=== PATIENT | female | born 1945 | race Caucasian/White ===

== ENCOUNTER 2019-12-31 18:35 | Observation (INO) ==
[2019-12-31 21:38] LABS: ABS Eosinophils 0.2 10^3/ul (0-0.6); ABS Lymphocytes 1.5 10^3/ul (1.0-4.8); ABS Monocytes 0.4 10^3/ul (0-0.8); Eosinophil % 3.2 %; Hematocrit 33 % (35-47); Hemoglobin 11.4 g/dL (12.0-16.0); Lymphocyte % 28.8 %; Mean Corpuscular HGB Conc 35 g/dL (31-36); Mean Corpuscular Hemoglobin 32 pg (27-31); Mean Corpuscular Volume 92 fL (80-97); Mean Platelet Volume 7.9 fL (7.4-10.4); Platelet Count 191 10^3/uL (150-450); Red Blood Count 3.55 10^6 /uL (3.70-4.87); Red Cell Distribution Width 13 % (10-15); White Blood Count 5.2 10^3/uL (3.5-10.8)
[2019-12-31 21:55] LABS: Albumin 3.9 g/dL (3.2-5.2); Albumin/Globulin Ratio 1.4 (1-3); BUN/Creatinine Ratio 34.3 (8-20); C Reactive Protein 2.88 mg/L (<8.01); Calcium 9.5 mg/dL (8.6-10.3); EGFR African American 98.7 (>60); EGFR Non-African American 81.6 (>60); Globulin 2.7 g/dL (2-4); Potassium 4.1 mmol/L (3.5-5.0); Total Bilirubin 1.2 mg/dL (0.2-1.0); Total Protein 6.6 g/dL (6.4-8.9)
[2019-12-31 22:41] LABS: Erythrocyte Sed Rate 15 mm/Hr (0-29)
[2019-12-31 23:12] LABS: Urine Appearance Clear; Urine Bilirubin Negative (Negative); Urine Blood Negative (Negative); Urine Color Yellow; Urine Glucose Negative (Negative); Urine Ketones Trace (Negative); Urine Nitrite Negative (Negative); Urine Protein Negative (Negative); Urine Urobilinogen Negative (Negative)
[2020-01-01] MEDS ORDERED: Ondansetron 4 mg VIAL 2 MG/ML 2 ml VIAL IV PRN (09:29)
[2020-01-01] MEDS: Carbidopa/Levodop CR 50/200(*) TAB.CR PO SCH ×3 (13:14→20:25)
[2020-01-02] MEDS: Carbidopa/Levodop CR 50/200(*) TAB.CR PO SCH (08:31)
[2020-01-02] MEDS ORDERED: CMCS: Meloxicam 7.5 mg TAB (NF) PO SCH (09:00)
[2020-01-02 11:18] VITALS: BP 117/34
== END 2020-01-02 11:45 ==
LOC: ED 18:35 → MEDTELE 18:35
PROVIDERS: ADMIT Hospitalist; ATTEND Internal Medicine

== ENCOUNTER 2020-01-02 11:01 | Inpatient (IN) ==
[2020-01-02] MEDS: Carbidopa/Levodop CR 50/200(*) TAB.CR PO SCH ×2 (17:26→20:45)
[2020-01-02 19:28] LABS: Urine Appearance Clear; Urine Bilirubin Negative (Negative); Urine Blood Negative (Negative); Urine Color Yellow; Urine Glucose Negative (Negative); Urine Ketones Trace (Negative); Urine Nitrite Negative (Negative); Urine Protein Negative (Negative); Urine Urobilinogen Negative (Negative)
[2020-01-02 19:30] LABS: Urine Bacteria Absent (Absent); Urine Red Blood Cell Trace(0-2/hpf) (Absent); Urine Squamous Epithelial Cell Present (Absent); Urine Transitional Epithelial Present (Absent); Urine White Blood Cell Trace(0-5/hpf) (Absent)
[2020-01-02] MEDS: Heparin 5000 UNITS/ML VIAL(*) 1 ml vial SUBCUT SCH (20:47)
[2020-01-03 05:47] LABS: ABS Eosinophils 0.2 10^3/ul (0-0.6); ABS Lymphocytes 1.6 10^3/ul (1.0-4.8); ABS Monocytes 0.4 10^3/ul (0-0.8); Eosinophil % 4.2 %; Hematocrit 33 % (35-47); Hemoglobin 11.5 g/dL (12.0-16.0); Lymphocyte % 36.5 %; Mean Corpuscular HGB Conc 35 g/dL (31-36); Mean Corpuscular Hemoglobin 33 pg (27-31); Mean Corpuscular Volume 92 fL (80-97); Mean Platelet Volume 7.4 fL (7.4-10.4); Nucleated Red Blood Cells % 0.2; Platelet Count 200 10^3/uL (150-450); Red Blood Count 3.54 10^6 /uL (3.70-4.87); Red Cell Distribution Width 13 % (10-15); White Blood Count 4.4 10^3/uL (3.5-10.8)
[2020-01-03 07:20] LABS: Albumin 3.5 g/dL (3.2-5.2); Albumin/Globulin Ratio 1.4 (1-3); Calcium 8.4 mg/dL (8.6-10.3); EGFR African American 127.7 (>60); EGFR Non-African American 105.5 (>60); Globulin 2.5 g/dL (2-4); Potassium 3.7 mmol/L (3.5-5.0); Total Bilirubin 0.8 mg/dL (0.2-1.0)
[2020-01-03] MEDS: Heparin 5000 UNITS/ML VIAL(*) 1 ml vial SUBCUT SCH ×2 (08:23→21:11)
[2020-01-03] MEDS: CMCS:Meloxicam 7.5 mg TAB (NF) PO SCH (08:23)
[2020-01-03] MEDS: Carbidopa/Levodop CR 50/200(*) TAB.CR PO SCH ×4 (08:23→21:00)
[2020-01-04] MEDS: Carbidopa/Levodop CR 50/200(*) TAB.CR PO SCH ×4 (08:21→20:28)
[2020-01-04] MEDS: Heparin 5000 UNITS/ML VIAL(*) 1 ml vial SUBCUT SCH ×2 (08:22→20:28)
[2020-01-04] MEDS: CMCS:Meloxicam 7.5 mg TAB (NF) PO SCH (08:22)
[2020-01-05] MEDS ORDERED: Lorazepam PYXIS KEY PRN ×2 (00:59→19:08)
[2020-01-05] MEDS ORDERED: LORazepam 2 mg VIAL 1 ml IM PRN ×2 (01:00→19:08)
[2020-01-05] MEDS ORDERED: LORazepam 2 mg VIAL 1 ml IM ONE (01:00)
[2020-01-05] MEDS: Carbidopa/Levodop CR 50/200(*) TAB.CR PO SCH ×4 (08:36→21:03)
[2020-01-05] MEDS: Heparin 5000 UNITS/ML VIAL(*) 1 ml vial SUBCUT SCH ×2 (08:37→20:06)
[2020-01-05] MEDS: CMCS:Meloxicam 7.5 mg TAB (NF) PO SCH (08:37)
[2020-01-05] MEDS: Magnesium Hydroxide LIQ 30 ML UDC PO PRN (20:03)
[2020-01-05] MEDS: LORazepam 0.5 mg TAB (*) PO PRN (21:04)
[2020-01-06] MEDS: Carbidopa/Levodop CR 50/200(*) TAB.CR PO SCH ×4 (08:31→22:00)
[2020-01-06] MEDS: Heparin 5000 UNITS/ML VIAL(*) 1 ml vial SUBCUT SCH ×2 (08:32→22:03)
[2020-01-06] MEDS: CMCS:Meloxicam 7.5 mg TAB (NF) PO SCH (08:32)
[2020-01-07] MEDS: Carbidopa/Levodop CR 50/200(*) TAB.CR PO SCH ×4 (09:27→20:23)
[2020-01-07] MEDS: Heparin 5000 UNITS/ML VIAL(*) 1 ml vial SUBCUT SCH ×2 (09:28→20:47)
[2020-01-07] MEDS: CMCS:Meloxicam 7.5 mg TAB (NF) PO SCH (09:28)
[2020-01-07] MEDS: Magnesium Hydroxide LIQ 30 ML UDC PO PRN (13:48)
[2020-01-07] MEDS ORDERED: Psyllium PAK PO ONE (15:46)
[2020-01-07] MEDS: Senna TAB 8.6 mg TAB PO PRN (20:25)
[2020-01-07] MEDS: LORazepam 0.5 mg TAB (*) PO PRN (22:16)
[2020-01-08] MEDS: CMCS:Meloxicam 7.5 mg TAB (NF) PO SCH (08:18)
[2020-01-08] MEDS: Carbidopa/Levodop CR 50/200(*) TAB.CR PO SCH ×4 (08:18→20:13)
[2020-01-08] MEDS: Psyllium PAK PO SCH (08:18)
[2020-01-08] MEDS: Heparin 5000 UNITS/ML VIAL(*) 1 ml vial SUBCUT SCH ×2 (08:27→20:13)
[2020-01-08] MEDS: Senna TAB 8.6 mg TAB PO PRN (20:12)
[2020-01-08] MEDS: LORazepam 0.5 mg TAB (*) PO PRN (21:04)
[2020-01-09] MEDS: CMCS:Meloxicam 7.5 mg TAB (NF) PO SCH (08:54)
[2020-01-09] MEDS: Carbidopa/Levodop CR 50/200(*) TAB.CR PO SCH ×4 (08:54→21:08)
[2020-01-09] MEDS: Heparin 5000 UNITS/ML VIAL(*) 1 ml vial SUBCUT SCH ×2 (08:55→21:09)
[2020-01-09] MEDS: Psyllium PAK PO SCH (08:56)
[2020-01-09] MEDS: LORazepam 0.5 mg TAB (*) PO PRN (21:10)
[2020-01-10 07:08] LABS: ABS Eosinophils 0.2 10^3/ul (0-0.6); ABS Lymphocytes 1.9 10^3/ul (1.0-4.8); ABS Monocytes 0.4 10^3/ul (0-0.8); Eosinophil % 4.3 %; Hematocrit 36 % (35-47); Hemoglobin 12.6 g/dL (12.0-16.0); Lymphocyte % 41.1 %; Mean Corpuscular HGB Conc 35 g/dL (31-36); Mean Corpuscular Hemoglobin 33 pg (27-31); Mean Corpuscular Volume 94 fL (80-97); Mean Platelet Volume 7.3 fL (7.4-10.4); Platelet Count 200 10^3/uL (150-450); Red Blood Count 3.86 10^6 /uL (3.70-4.87); Red Cell Distribution Width 14 % (10-15); White Blood Count 4.6 10^3/uL (3.5-10.8)
[2020-01-10 07:36] LABS: ALT 9 U/L (7-52); Albumin 3.8 g/dL (3.2-5.2); Albumin/Globulin Ratio 1.5 (1-3); Alkaline Phosphatase 53 U/L (34-104); BUN/Creatinine Ratio 23.7 (8-20); Blood Urea Nitrogen 14 mg/dL (6-24); CO2 Carbon Dioxide 26 mmol/L (22-32); Calcium 8.8 mg/dL (8.6-10.3); Chloride 108 mmol/L (101-111); EGFR African American 120.2 (>60); EGFR Non-African American 99.4 (>60); Globulin 2.6 g/dL (2-4); Glucose 87 mg/dL (70-100); Sodium 139 mmol/L (135-145); Total Protein 6.4 g/dL (6.4-8.9)
[2020-01-10 08:13] LABS: Anion Gap 5 mmol/L (2-11)
[2020-01-10] MEDS: Carbidopa/Levodop CR 50/200(*) TAB.CR PO SCH ×4 (08:17→20:37)
[2020-01-10] MEDS: CMCS:Meloxicam 7.5 mg TAB (NF) PO SCH (08:17)
[2020-01-10] MEDS: Heparin 5000 UNITS/ML VIAL(*) 1 ml vial SUBCUT SCH ×2 (08:17→20:35)
[2020-01-10] MEDS: Psyllium PAK PO SCH (08:19)
[2020-01-10 13:23] LABS: Potassium Redraw 4.3 mmol/L (3.5-5.0)
[2020-01-10 19:10] LABS: Urine Appearance Clear; Urine Bilirubin Negative (Negative); Urine Blood Negative (Negative); Urine Color Yellow; Urine Glucose Negative (Negative); Urine Ketones Trace (Negative); Urine Nitrite Negative (Negative); Urine Protein Negative (Negative); Urine Specific Gravity 1.014 (1.010-1.030); Urine Urobilinogen Negative (Negative)
[2020-01-10] MEDS: LORazepam 0.5 mg TAB (*) PO PRN (20:39)
[2020-01-11] MEDS: CMCS:Meloxicam 7.5 mg TAB (NF) PO SCH (09:17)
[2020-01-11] MEDS: Psyllium PAK PO SCH (09:17)
[2020-01-11] MEDS: Heparin 5000 UNITS/ML VIAL(*) 1 ml vial SUBCUT SCH ×2 (09:17→21:06)
[2020-01-11] MEDS: Carbidopa/Levodop CR 50/200(*) TAB.CR PO SCH ×4 (09:18→21:04)
[2020-01-11] MEDS: Senna TAB 8.6 mg TAB PO PRN (21:04)
[2020-01-11] MEDS: LORazepam 0.5 mg TAB (*) PO PRN (23:47)
[2020-01-12 06:09] VITALS: BP 107/50
[2020-01-12] MEDS: Heparin 5000 UNITS/ML VIAL(*) 1 ml vial SUBCUT SCH (11:24)
[2020-01-12] MEDS: CMCS:Meloxicam 7.5 mg TAB (NF) PO SCH (11:24)
[2020-01-12] MEDS: Carbidopa/Levodop CR 50/200(*) TAB.CR PO SCH (11:24)
[2020-01-12] MEDS: Psyllium PAK PO SCH (11:25)
== END 2020-01-12 13:12 | disposition home health service (06) | DRG 57 ==
LOC: PMRU 13:12
PROVIDERS: ADMIT Physical Medicine & Rehabilitation; ATTEND Physical Medicine & Rehabilitation

== ENCOUNTER 2020-02-15 05:44 | Inpatient (IN) ==
[2020-02-15] MEDS ORDERED: Buffered Lidocaine 1% SYRIN 1 ml INTRADERM ONE ×2 (06:00→06:30)
[2020-02-15] MEDS ORDERED: Lactated Ringers 1000 ml BAG 1,000 ML IV SCH (06:00)
[2020-02-15] MEDS ORDERED: Dexamethasone IV 4 MG/ML VIAL 1 ml VIAL IV SLOW PU ONE (06:00)
[2020-02-15] MEDS ORDERED: Famotidine IV 10 MG/ML 2 ml VIAL (20 mg) IV ONE (06:00)
[2020-02-15] MEDS ORDERED: Dexamethasone IV 4 MG/ML VIAL 1 ml VIAL ONE ×2 (06:30→08:25)
[2020-02-15] MEDS ORDERED: Famotidine IV 10 MG/ML 2 ml VIAL (20 mg) ONE (06:30)
[2020-02-15] MEDS ORDERED: EPHEDrine (Pressors) 50 MG/ML VIAL ONE (06:50)
[2020-02-15] MEDS ORDERED: Phenylephrine IV 10 MG/ML 1 ml VIAL ONE (06:50)
[2020-02-15] MEDS ORDERED: Sterile Water for Inj 10 ML ONE (06:50)
[2020-02-15] MEDS ORDERED: Remifentanil 2 MG VIAL ONE ×2 (06:57)
[2020-02-15] MEDS ORDERED: Lidocaine 1% w EPI 1:200,000 SDV 30 ML VIAL ONE (06:59)
[2020-02-15] MEDS ORDERED: Bacitracin INJECTION 50,000 UNITS ONE (06:59)
[2020-02-15] MEDS ORDERED: Lidocaine 2% PF 5 ML VIAL ONE (07:09)
[2020-02-15] MEDS ORDERED: Propofol 10 MG/ML 20 ML BTL ONE (07:09)
[2020-02-15] MEDS ORDERED: fentaNYL 250 mcg/5 ml 50 MCG/ML 5 ml VIAL (250 MCG) ONE (07:09)
[2020-02-15] MEDS ORDERED: Propofol 10 mg/ml 100 ML BTL 100 ML ONE (08:46)
[2020-02-15] MEDS ORDERED: Naloxone 0.4 mg VIAL 0.4 mg/ml 1 ml VIAL IV PRN (08:58)
[2020-02-15] MEDS ORDERED: fentaNYL 100 mcg/2 ml 50 MCG/ML VIAL IV PRN (08:58)
[2020-02-15] MEDS ORDERED: HYDROmorphone 1 MG/1 ML SYRINGE IV PRN (08:58)
[2020-02-15] MEDS ORDERED: Ondansetron 4 mg VIAL 2 MG/ML 2 ml VIAL IV PRN ×2 (08:58→11:19)
[2020-02-15] MEDS ORDERED: DiMENhydriNATE IV 50 mg/ml 1 ml VIAL IV PUSH PRN (08:58)
[2020-02-15] MEDS ORDERED: HYDROmorphone 1 MG/1 ML SYRINGE ONE (09:27)
[2020-02-15] MEDS ORDERED: Ondansetron 4 mg VIAL 2 MG/ML 2 ml VIAL ONE (10:26)
[2020-02-15] MEDS ORDERED: Acetaminophen IV 1 GM/100ML 100 ML ONE (10:47)
[2020-02-15] MEDS ORDERED: HYDROcodone/ACETAMIN 5/325 mg TAB PO PRN (11:19)
[2020-02-15] MEDS ORDERED: Labetalol IV 5 MG/ML 20 ml VIAL ONE (11:38)
[2020-02-15] MEDS ORDERED: hydrALAZINE 20 mg/ml 1 ML Vial IV ONE (12:00)
[2020-02-15] MEDS ORDERED: HYDROcodone/ACETAMIN 5/325 mg TAB ONE (13:45)
[2020-02-15] MEDS: HYDROcodone/ACETAMIN 5/325 mg TAB PO PRN (13:47)
[2020-02-15] MEDS ORDERED: HYDROcodone/ACETAMIN 5/325 mg TAB PO ONE (16:12)
[2020-02-15] MEDS: NS 0.9% 1000 ml BAG 1,000 ML IV SCH (16:30)
[2020-02-16] MEDS: NS 0.9% 1000 ml BAG 1,000 ML IV SCH (02:32)
[2020-02-16] MEDS ORDERED: Psyllium PAK PO PRN (08:26)
[2020-02-16] MEDS: Calcium Carb 1250 mg TAB (500 mg elemental calcium) PO SCH (17:49)
[2020-02-16] MEDS: Cholecalciferol (VIT D3) 1,000 unit TAB PO SCH (17:50)
[2020-02-16] MEDS: Carbidopa/Levodop CR 50/200 TAB.CR PO SCH ×2 (17:50→21:49)
[2020-02-16] MEDS: HYDROcodone/ACETAMIN 5/325 mg TAB PO PRN (17:50)
[2020-02-17] MEDS: HYDROcodone/ACETAMIN 5/325 mg TAB PO PRN (06:32)
[2020-02-17] MEDS: Magnesium Hydroxide LIQ 30 ML UDC PO PRN (08:19)
[2020-02-17] MEDS: Carbidopa/Levodop CR 50/200 TAB.CR PO SCH ×4 (08:20→23:06)
[2020-02-17] MEDS: Cholecalciferol (VIT D3) 1,000 unit TAB PO SCH (17:05)
[2020-02-17] MEDS: Calcium Carb 1250 mg TAB (500 mg elemental calcium) PO SCH (17:05)
[2020-02-18] MEDS: HYDROcodone/ACETAMIN 5/325 mg TAB PO PRN ×2 (05:25→20:48)
[2020-02-18] MEDS: Magnesium Hydroxide LIQ 30 ML UDC PO PRN (08:46)
[2020-02-18] MEDS: Carbidopa/Levodop CR 50/200 TAB.CR PO SCH ×4 (08:48→20:42)
[2020-02-18] MEDS ORDERED: Senna TAB 8.6 mg TAB PO PRN (17:12)
[2020-02-18] MEDS ORDERED: Polyethylene Glycol 3350 17 GM PACKET PO PRN (17:22)
[2020-02-18] MEDS ORDERED: Lactulose 30 ml UDC PO ONE (17:23)
[2020-02-18] MEDS: Calcium Carb 1250 mg TAB (500 mg elemental calcium) PO SCH (17:44)
[2020-02-18] MEDS: Cholecalciferol (VIT D3) 1,000 unit TAB PO SCH (17:44)
[2020-02-19] MEDS: HYDROcodone/ACETAMIN 5/325 mg TAB PO PRN (05:06)
[2020-02-19 06:37] LABS: ABS Eosinophils 0.2 10^3/ul (0-0.6); ABS Lymphocytes 1.9 10^3/ul (1.0-4.8); ABS Monocytes 0.5 10^3/ul (0-0.8); ABS Neutrophils 3.3 10^3/ul (1.5-7.7); Hematocrit 34 % (35-47); Hemoglobin 12.2 g/dL (12.0-16.0); Lymphocyte % 31.3 %; Mean Corpuscular HGB Conc 36 g/dL (31-36); Mean Corpuscular Hemoglobin 33 pg (27-31); Mean Corpuscular Volume 92 fL (80-97); Platelet Count 173 10^3/uL (150-450); Red Blood Count 3.69 10^6 /uL (3.70-4.87); Red Cell Distribution Width 13 % (10-15); White Blood Count 5.9 10^3/uL (3.5-10.8)
[2020-02-19 06:54] LABS: BUN/Creatinine Ratio 25.4 (8-20); Calcium 9.3 mg/dL (8.6-10.3); EGFR African American 120.2 (>60); EGFR Non-African American 99.4 (>60)
[2020-02-19] MEDS: Carbidopa/Levodop CR 50/200 TAB.CR PO SCH ×2 (08:38→13:20)
[2020-02-19 15:56] VITALS: BP 146/72
== END 2020-02-19 16:23 | DRG 472 ==
LOC: AA 05:44 → SSU 11:19
PROVIDERS: ADMIT Neurological Surgery; ATTEND Internal Medicine

== ENCOUNTER 2020-02-19 11:27 | Inpatient (IN) ==
[2020-02-19] MEDS ORDERED: Senna TAB 8.6 mg TAB PO PRN (17:21)
[2020-02-19] MEDS ORDERED: Magnesium Hydroxide LIQ 30 ML UDC PO PRN (17:21)
[2020-02-19] MEDS ORDERED: Polyethylene Glycol 3350 17 GM PACKET PO PRN (17:30)
[2020-02-19] MEDS: Carbidopa/Levodop CR 50/200 TAB.CR PO SCH ×2 (18:15→22:00)
[2020-02-19] MEDS: Cholecalciferol (VIT D3) 1,000 unit TAB PO SCH (18:15)
[2020-02-19] MEDS: Calcium Carb 1250 mg TAB (500 mg elemental calcium) PO SCH (18:17)
[2020-02-19] MEDS: HYDROcodone/ACETAMIN 5/325 mg TAB PO PRN (23:50)
[2020-02-20] MEDS: Carbidopa/Levodop CR 50/200 TAB.CR PO SCH ×4 (09:35→21:01)
[2020-02-20] MEDS: Calcium Carb 1250 mg TAB (500 mg elemental calcium) PO SCH (17:30)
[2020-02-20] MEDS: Cholecalciferol (VIT D3) 1,000 unit TAB PO SCH (17:31)
[2020-02-21] MEDS: Carbidopa/Levodop CR 50/200 TAB.CR PO SCH ×4 (09:30→22:00)
[2020-02-21 10:00] LABS: ABS Eosinophils 0.2 10^3/ul (0-0.6); ABS Monocytes 0.5 10^3/ul (0-0.8); ABS Neutrophils 3.9 10^3/ul (1.5-7.7); Eosinophil % 3.9 %; Hematocrit 35 % (35-47); Hemoglobin 12.1 g/dL (12.0-16.0); Lymphocyte % 17.8 %; Mean Corpuscular HGB Conc 35 g/dL (31-36); Mean Corpuscular Hemoglobin 33 pg (27-31); Mean Corpuscular Volume 93 fL (80-97); Mean Platelet Volume 7.6 fL (7.4-10.4); Nucleated Red Blood Cells % 0.1; Platelet Count 206 10^3/uL (150-450); Red Blood Count 3.72 10^6 /uL (3.70-4.87); Red Cell Distribution Width 14 % (10-15); White Blood Count 5.6 10^3/uL (3.5-10.8)
[2020-02-21 10:17] LABS: Albumin 3.9 g/dL (3.2-5.2); Albumin/Globulin Ratio 1.5 (1-3); BUN/Creatinine Ratio 29.1 (8-20); Calcium 9.3 mg/dL (8.6-10.3); EGFR African American 130.4 (>60); EGFR Non-African American 107.8 (>60); Globulin 2.6 g/dL (2-4); Potassium 3.7 mmol/L (3.5-5.0); Total Protein 6.5 g/dL (6.4-8.9)
[2020-02-21] MEDS: Calcium Carb 1250 mg TAB (500 mg elemental calcium) PO SCH (17:22)
[2020-02-21] MEDS: Cholecalciferol (VIT D3) 1,000 unit TAB PO SCH (17:22)
[2020-02-22] MEDS: HYDROcodone/ACETAMIN 5/325 mg TAB PO PRN (03:35)
[2020-02-22] MEDS: Carbidopa/Levodop CR 50/200 TAB.CR PO SCH ×4 (09:24→19:55)
[2020-02-22] MEDS: Cholecalciferol (VIT D3) 1,000 unit TAB PO SCH (17:31)
[2020-02-22] MEDS: Calcium Carb 1250 mg TAB (500 mg elemental calcium) PO SCH (17:31)
[2020-02-23 07:15] VITALS: BP 129/71
[2020-02-23] MEDS: Carbidopa/Levodop CR 50/200 TAB.CR PO SCH (10:00)
== END 2020-02-23 13:16 | disposition home health service (06) | DRG 561 ==
LOC: PMRU 16:30
PROVIDERS: ADMIT Physical Medicine & Rehabilitation; ATTEND Physical Medicine & Rehabilitation

== ENCOUNTER 2022-12-09 09:42 | Inpatient (IN) ==
[2022-12-09] MEDS ORDERED: Clindamycin 900 MG/50 **NS BAG 900 MG/50 ML BAG ONE (11:30)
[2022-12-09] MEDS ORDERED: Bupivacaine 0.5% W/EPI SDV 10 ML VIAL INJ ONE (11:39)
[2022-12-09] MEDS ORDERED: fentaNYL 100 mcg/2 ml 50 MCG/ML VIAL ONE (13:09)
[2022-12-09] MEDS ORDERED: Propofol 10 MG/ML 20 ML BTL ONE (13:31)
[2022-12-09] MEDS ORDERED: Succinylcholine 200 mg VIAL 20 mg/ml 10 ml VIAL (200 mg) ONE (13:31)
[2022-12-09] MEDS ORDERED: Lidocaine 2% PF 5 ML VIAL ONE (13:31)
[2022-12-09] MEDS ORDERED: fentaNYL 100 mcg/2 ml 50 MCG/ML VIAL IV PRN (13:45)
[2022-12-09] MEDS ORDERED: Ondansetron 4 mg VIAL 2 MG/ML 2 ml VIAL IV PRN ×2 (13:45→16:23)
[2022-12-09] MEDS ORDERED: ACETAMINOPHEN IV ONE (13:45)
[2022-12-09] MEDS ORDERED: Naloxone 0.4 mg VIAL 0.4 mg/ml 1 ml VIAL IV PRN (13:45)
[2022-12-09] MEDS ORDERED: Magnesium Hydroxide LIQ 30 ML UDC PO PRN (16:23)
[2022-12-09] MEDS ORDERED: Lactulose 30 ml UDC PO PRN (16:23)
[2022-12-09] MEDS ORDERED: Ondansetron ODT 4 mg TAB 4 MG TAB PO PRN (16:23)
[2022-12-09] MEDS ORDERED: Carbidopa/Levodop 25/100 MG TAB PO PRN (17:40)
[2022-12-09 17:54] LABS: ABS Eosinophils 0.1 10^3/uL (0.0-0.5); ABS Monocytes 0.6 10^3/uL (0.0-0.9); ABS Neutrophils 6.4 10^3/uL (1.5-7.6); ABS Nucleated RBC 0.01 10^3/ul; Eosinophil % 0.9 %; Hemoglobin 10.3 g/dL (11.5-14.3); Lymphocyte % 12.5 %; Mean Corpuscular Hgb Conc 35.6 g/dL (31-36); Mean Corpuscular Volume 92.8 fL (80-97); Mean Platelet Volume 7.4 fL (7.5-11.2); Nucleated Red Blood Cells % 0.1 /100 WBC (0.0-0.4); Platelet Count 251 10^3/uL (150-450); Red Blood Count 3.13 10^6/uL (3.63-4.92); White Blood Count 8.2 10^3/uL (3.8-11.8)
[2022-12-09 18:17] LABS: Albumin 3.4 g/dL (3.2-5.2); Albumin/Globulin Ratio 1.4 (1-3); Calcium 8.7 mg/dL (8.6-10.3); Creatinine, Serum 0.58 mg/dL (0.51-0.95); Globulin 2.5 g/dL (2-4); Potassium 3.7 mmol/L (3.5-5.0); Total Bilirubin 1.5 mg/dL (0.2-1.0); Total Protein 5.9 g/dL (6.4-8.9); eGFR CKD-EPI 92.6 (>60)
[2022-12-09] MEDS: CMCS: Rivastigmine 1.5 mg CAP (NF) PO SCH (21:53)
[2022-12-09] MEDS: Carbidopa/Levodop CR 50/200 TAB.CR PO SCH (21:53)
[2022-12-09] MEDS: Magnesium Hydroxide LIQ 30 ML UDC PO SCH (22:11)
[2022-12-10] MEDS: Morphine 2 MG/ML SYRINGE IV PRN ×2 (01:22→20:31)
[2022-12-10] MEDS: Carbidopa/Levodop CR 50/200 TAB.CR PO SCH ×2 (08:34→20:33)
[2022-12-10] MEDS: Magnesium Hydroxide LIQ 30 ML UDC PO SCH ×2 (08:34→20:34)
[2022-12-10] MEDS: Vitamin THERAPEUTIC TAB PO SCH (09:55)
[2022-12-10] MEDS: CMCS: Rivastigmine 1.5 mg CAP (NF) PO SCH ×2 (09:56→20:33)
[2022-12-10] MEDS: CMCS: Solifenacin 5 mg TAB (NF) PO SCH (09:56)
[2022-12-10] MEDS: Enoxaparin 30 MG/0.3 ML SYR SUBCUT SCH (14:18)
[2022-12-11] MEDS: Carbidopa/Levodop CR 50/200 TAB.CR PO SCH ×2 (09:06→21:13)
[2022-12-11] MEDS: CMCS: Rivastigmine 1.5 mg CAP (NF) PO SCH ×2 (09:07→21:13)
[2022-12-11] MEDS: CMCS: Solifenacin 5 mg TAB (NF) PO SCH (09:07)
[2022-12-11] MEDS: Vitamin THERAPEUTIC TAB PO SCH (09:08)
[2022-12-11] MEDS: Magnesium Hydroxide LIQ 30 ML UDC PO SCH ×2 (09:11→21:13)
[2022-12-11] MEDS: Morphine 2 MG/ML SYRINGE IV PRN ×2 (10:51→21:14)
[2022-12-11] MEDS: Enoxaparin 30 MG/0.3 ML SYR SUBCUT SCH (13:42)
[2022-12-12] MEDS: CMCS: Solifenacin 5 mg TAB (NF) PO SCH (09:43)
[2022-12-12] MEDS: CMCS: Rivastigmine 1.5 mg CAP (NF) PO SCH ×2 (09:43→22:12)
[2022-12-12] MEDS: Magnesium Hydroxide LIQ 30 ML UDC PO SCH ×2 (09:46→22:16)
[2022-12-12] MEDS: Vitamin THERAPEUTIC TAB PO SCH (09:47)
[2022-12-12] MEDS: Carbidopa/Levodop CR 50/200 TAB.CR PO SCH ×2 (09:47→20:10)
[2022-12-12] MEDS: Enoxaparin 30 MG/0.3 ML SYR SUBCUT SCH (14:13)
[2022-12-13] MEDS: CMCS: Rivastigmine 1.5 mg CAP (NF) PO SCH ×2 (09:49→21:21)
[2022-12-13] MEDS: Carbidopa/Levodop CR 50/200 TAB.CR PO SCH ×2 (09:49→19:49)
[2022-12-13] MEDS: Vitamin THERAPEUTIC TAB PO SCH (09:50)
[2022-12-13] MEDS: Magnesium Hydroxide LIQ 30 ML UDC PO SCH ×2 (09:50→19:52)
[2022-12-13] MEDS: CMCS: Solifenacin 5 mg TAB (NF) PO SCH (09:53)
[2022-12-13 12:50] LABS: Rapid COVID-19 Molecular Undetected (Undetected)
[2022-12-13] MEDS: Enoxaparin 30 MG/0.3 ML SYR SUBCUT SCH (14:58)
[2022-12-14] MEDS: Magnesium Hydroxide LIQ 30 ML UDC PO SCH (08:31)
[2022-12-14] MEDS: CMCS: Rivastigmine 1.5 mg CAP (NF) PO SCH (08:32)
[2022-12-14] MEDS: CMCS: Solifenacin 5 mg TAB (NF) PO SCH (08:32)
[2022-12-14] MEDS: Carbidopa/Levodop CR 50/200 TAB.CR PO SCH (08:32)
[2022-12-14] MEDS: Vitamin THERAPEUTIC TAB PO SCH (08:32)
[2022-12-14 10:02] VITALS: BP 136/80
== END 2022-12-14 11:40 | DRG 563 ==
LOC: SSU 09:42 → OR 09:42
PROVIDERS: ADMIT Orthopaedic Surgery; ATTEND Orthopaedic Surgery